=== PATIENT | female | born 1980 | race Two or more races ===

== ENCOUNTER 2017-11-29 21:14 | Inpatient (IN) | payer BC ==
[~2017-11-29] VITALS: Ht 160 cm; Wt 47.0 kg
[2017-11-29] MEDS ORDERED: TYLENOL (21:28)
[2017-11-29] MEDS ORDERED: IBUPROFEN (21:28)
[2017-11-29] MEDS ORDERED: ONDANSETRON 4 MG/2 ML VIAL IV ONE ×2 (21:45→23:30)
[2017-11-29] MEDS ORDERED: ONDANSETRON 4 MG/2 ML VIAL ONE ×2 (21:45→23:27)
[2017-11-29] MEDS ORDERED: MORPHINE SULFATE 4 MG/1 ML DISP.SYRIN ONE ×2 (21:45→23:27)
[2017-11-29] MEDS ORDERED: MORPHINE SULFATE 2 MG/1 ML DISP.SYRIN IV ONE ×2 (21:45→23:30)
[2017-11-29] MEDS ORDERED: IV NORMAL SALINE 1000 ML BAG IV ONE ×2 (21:45→23:45)
[2017-11-29 21:55] LABS: BASOPHILS % (AUTO) 0.2 % (0.0-2.0); EOSINOPHILS # (AUTO) 0.1 K/uL (0.0-0.7); HEMATOCRIT 39.7 % (31.2-41.9); HEMOGLOBIN 13.6 g/dL (10.9-14.3); LYMPHOCYTES # (AUTO) 2.4 K/uL (20.0-40.0); LYMPHOCYTES % (AUTO) 18.2 % (20.5-51.5); MEAN CORPUSCULAR HGB CONC 34 g/dL (32.3-35.6); MEAN CORPUSCULAR VOLUME 90.5 fL (75.5-95.3); MONOCYTES # (AUTO) 0.9 K/uL (2.0-10.0); MONOCYTES % (AUTO) 6.9 % (0.0-11.0); NEUTROPHILS # (AUTO) 9.9 K/uL (1.8-8.9); NEUTROPHILS % (AUTO) 73.7 % (38.5-71.5); PLATELET COUNT (AUTO) 202 K/uL (179-408); RED BLOOD CELL COUNT(AUTO) 4.39 MIL/uL (3.63-4.92); WHITE BLOOD COUNT (AUTO) 13.4 K/uL (3.8-11.8)
[2017-11-29 22:01] LABS: CREATININE 0.9 mg/dL (0.6-1.3); POTASSIUM 3.9 mmol/L (3.5-5.1)
[2017-11-29 22:12] LABS: *BILIRUBIN,URIN NEGATIVE (NEGATIVE); *BLOOD, URINE 1+ (NEGATIVE); *COLOR,URINE YELLOW (YELLOW); *KETONES,URINE NEGATIVE (NEGATIVE); *PROTEIN,URINE NEGATIVE (NEGATIVE); *UROBILINOGEN,URINE 0.2 E.U./dl (NORMAL); LEUKOCYTE ESTERASE ,URINE 2+ (NEGATIVE); NITRITE, URINE NEGATIVE (NEGATIVE); PH,URINE 6.5 (5.0-8.0); UGLUCOSE NEGATIVE (NEGATIVE)
[2017-11-29 22:14] LABS: BILIRUBIN,DIRECT 0.1 mg/dL (0.0-0.2); BILIRUBIN,TOTAL 0.6 mg/dL (0.2-1.0); TOTAL PROTEIN, SERUM 7.5 g/dL (6.4-8.2)
[2017-11-29 22:18] LABS: *CLARITY,URINE HAZY (CLEAR)
[2017-11-29 22:32] LABS: WBC,URINE 20-50 /HPF (0-3)
[2017-11-29 22:33] LABS: BACTERIA,URINE FEW /HPF (NONE SEEN); RENAL EPITHELIAL CELLS,URINE FEW /LPF (NONE SEEN); SQUAMOUS EPITHELIAL CELL,UR FEW /HPF (NONE SEEN); TRANSITIONAL EPI CELLS,URINE FEW /LPF (NONE SEEN)
[2017-11-29] MEDS ORDERED: CEFTRIAXONE 1 G VIAL ONE (23:28)
[2017-11-29] MEDS ORDERED: CEFTRIAXONE 1 G in IV DEXTROSE 5% 50 ML IV ONE (23:30)
[2017-11-29] MEDS ORDERED: PIPERACILLIN SODIUM/TAZOBACTAM 3.375 G in IV DEXTROSE 5% 50 ML IV ONE (23:45)
[2017-11-29] MEDS ORDERED: PIPERACILLIN/TAZOBACTAM/D5W 50 ML IV ONE (23:46)
[2017-11-30] VITALS (10 sets, daily range): BP systolic 89–135; BP diastolic 50–73
[2017-11-30] MEDS ORDERED: IV NS 1000 ML 1,000 ML IV PRN ×2 (00:26→12:45)
[2017-11-30] MEDS ORDERED: ONDANSETRON 4 MG/2 ML VIAL IV PRN (00:30)
[2017-11-30] MEDS ORDERED: MORPHINE SULFATE 4 MG/1 ML DISP.SYRIN IV PRN (00:30)
[2017-11-30] MEDS ORDERED: TAZOBACTAM IV SCH (06:00)
[2017-11-30] MEDS ORDERED: DEXTROSE 5% IV SCH (06:00)
[2017-11-30] MEDS ORDERED: PIPERACILLIN SODIUM IV SCH (06:00)
[2017-11-30] MEDS ORDERED: LIDOCAINE 1%-EPI 1:100,000 20 ML VIAL ONE (07:56)
[2017-11-30] MEDS ORDERED: BUPIVACAINE 0.25% 30 ML VIAL ONE (07:57)
[2017-11-30] MEDS ORDERED: BACITRACIN ZINC OINT 15 GM TUBE ONE (07:57)
[2017-11-30] MEDS: PIPERACILLIN SODIUM IV SCH ×2 (08:13→16:02)
[2017-11-30] MEDS: DEXTROSE 5% IV SCH ×2 (08:13→16:02)
[2017-11-30] MEDS: TAZOBACTAM IV SCH ×2 (08:13→16:02)
[2017-11-30] MEDS ORDERED: PANTOPRAZOLE SODIUM 40 MG VIAL IV SCH (09:00)
[2017-11-30] MEDS ORDERED: FENTANYL CITRATE 100 MCG/2 ML AMPUL ONE (09:29)
[2017-11-30] MEDS ORDERED: METOCLOPRAMIDE HCL 10 MG/2 ML VIAL ONE (09:29)
[2017-11-30] MEDS ORDERED: ROCURONIUM BROMIDE 50 MG/5 ML VIAL ONE (09:30)
[2017-11-30] MEDS ORDERED: SUCCINYLCHOLINE CHLORIDE 200 MG/10 ML VIAL ONE (09:30)
[2017-11-30] MEDS ORDERED: MIDAZOLAM HCL 2 MG/2 ML VIAL ONE (09:30)
[2017-11-30] MEDS ORDERED: KETOROLAC TROMETHAMINE 30 MG INJ ONE (11:50)
[2017-11-30] MEDS ORDERED: HYDROMORPHONE 1 MG/1 ML DISP.SYRIN ONE (11:50)
[2017-11-30] MEDS ORDERED: ONDANSETRON 4 MG/2 ML VIAL ONE (11:54)
[2017-11-30] MEDS ORDERED: HYDROCODONE/APAP 10-325 MG TABLET PO PRN (13:00)
[2017-11-30] MEDS ORDERED: HYDROMORPHONE 1 MG/1 ML DISP.SYRIN IV PRN (13:00)
[2017-11-30] MEDS ORDERED: IV LACTATED RINGERS SOLUTION 1,000 ML BAG IV PRN (13:00)
[2017-11-30] MEDS: IV LACTATED RINGERS SOLUTION 1,000 ML IV PRN (13:55)
[2017-11-30] MEDS ORDERED: DEXAMETHASONE SOD PHOSPHATE 4 MG INJ IV ONE (20:39)
[2017-11-30] MEDS ORDERED: IV LACTATED RINGERS SOLUTION 1,000 ML BAG IV ONE (20:39)
[2017-11-30] MEDS ORDERED: SEVOFLURANE 250 ML BOTTLE IH ONE (20:39)
[2017-11-30] MEDS ORDERED: GLYCOPYRROLATE 0.2 MG/ML VIAL MC ONE (20:39)
[2017-11-30] MEDS ORDERED: PROPOFOL 200 MG/20 ML BOTTLE IV ONE (20:39)
[2017-11-30] MEDS ORDERED: LIDOCAINE-MPF 2% 5 ML VIAL MC ONE (20:39)
[2017-11-30] MEDS ORDERED: ONDANSETRON 4 MG/2 ML VIAL IV ONE (20:39)
[2017-11-30] MEDS ORDERED: NEOSTIGMINE METHYLSULFATE 10 MG/10 ML VIAL IV ONE (20:39)
[2017-12-01] MEDS: DEXTROSE 5% IV SCH (00:02)
[2017-12-01] MEDS: PIPERACILLIN SODIUM IV SCH (00:02)
[2017-12-01] MEDS: TAZOBACTAM IV SCH (00:02)
[2017-12-01 03:29] VITALS: BP 98/59
[2017-12-01] MEDS: IV LACTATED RINGERS SOLUTION 1,000 ML IV PRN (04:29)
[2017-12-01 06:17] LABS: BASOPHILS % (AUTO) 0.2 % (0.0-2.0); EOSINOPHILS % (AUTO) 0.3 % (0.0-7.0); HEMATOCRIT 32.1 % (31.2-41.9); HEMOGLOBIN 11.1 g/dL (10.9-14.3); LYMPHOCYTES # (AUTO) 2.2 K/uL (20.0-40.0); LYMPHOCYTES % (AUTO) 18.8 % (20.5-51.5); MEAN CORPUSCULAR HEMOGLOBIN 31.2 uug (24.7-32.8); MEAN CORPUSCULAR HGB CONC 35 g/dL (32.3-35.6); MEAN CORPUSCULAR VOLUME 90.1 fL (75.5-95.3); MONOCYTES # (AUTO) 0.8 K/uL (2.0-10.0); NEUTROPHILS # (AUTO) 8.5 K/uL (1.8-8.9); NEUTROPHILS % (AUTO) 73.7 % (38.5-71.5); PLATELET COUNT (AUTO) 180 K/uL (179-408); RED BLOOD CELL COUNT(AUTO) 3.56 MIL/uL (3.63-4.92); WHITE BLOOD COUNT (AUTO) 11.5 K/uL (3.8-11.8)
[2017-12-01 06:21] LABS: CREATININE 0.9 mg/dL (0.6-1.3); MAGNESIUM 1.9 mg/dL (1.8-2.4); PHOSPHOROUS 4.2 mg/dL (2.5-4.9); POTASSIUM 4.1 mmol/L (3.5-5.1)
[2017-12-01] MEDS ORDERED: PANTOPRAZOLE SODIUM 40 MG TABLET.DR PO SCH (08:00)
[2017-12-01 11:34] VITALS: BP 102/69
[2017-12-01 15:06] VITALS: BP 107/72
[2017-12-01] MEDS ORDERED: CEPH-570 PO (16:00)
[2017-12-01] MEDS ORDERED: HYDR-3326 PO (16:05)
[2017-12-01] MEDS ORDERED: MAGNESIUM HYDROXIDE 30 ML LIQUID UDC PO PRN (18:15)
== END 2017-12-01 20:40 | disposition home or self-care (01) | DRG 342 ==
LOC: ER 21:18 → MED 11-30 00:44
PROVIDERS: ATTEND Registered Nurse
PROC: 0DTJ4ZZ Resection of Appendix, Percutaneous Endoscopic Approach (ICD-10-PCS; principal; 2017-11-30 10:05)
DX: K35.80 Unspecified acute appendicitis (principal); N39.0 Urinary tract infection, site not specified; N83.202 Unspecified ovarian cyst, left side; R73.9 Hyperglycemia, unspecified
CPT/HCPCS: 36415; 83690; 83735; 84100; 85025; 85730; 87086; A4663; C9113; J0330; J0696; J1100; J1170; J1885; J2250; J2270; J2405; J2543; J2710; J2765; J3010; J3490; J7030; J7060; J7120